=== PATIENT | male | born 1985 | race Caucasian/White ===

== ENCOUNTER 2018-11-14 15:13 | Emergency (ER) | payer MEDICAID ==
[~2018-11-14] VITALS: Ht 167.6 cm; Wt 93.2 kg
[2018-11-14 15:34] VITALS: Ht 167.6 cm; Wt 93.2 kg
[2018-11-14 18:00] VITALS: BP 138/86
== END 2018-11-14 18:00 | disposition home or self-care (01) ==
LOC: D.ER 15:13
DX: S00.03XA Contusion of scalp, initial encounter (principal); W20.8XXA Other cause of strike by thrown, projected or falling object, initial encounter; Y93.89 Activity, other specified; Y92.019 Unspecified place in single-family (private) house as the place of occurrence of the external cause; S00.01XA Abrasion of scalp, initial encounter; R11.0 Nausea; F17.200 Nicotine dependence, unspecified, uncomplicated

== ENCOUNTER → 2019-03-22 14:45 | Outpatient (CLI) | payer MEDICAID ==
[2018-11-14 15:34] VITALS: BMI 33.1
== END | disposition home or self-care (01) ==
LOC: D.RAD 14:45
PROVIDERS: ATTEND Family Medicine
DX: M25.572 Pain in left ankle and joints of left foot (principal); M25.571 Pain in right ankle and joints of right foot

== ENCOUNTER 2020-05-11 04:49 | Emergency (ER) | payer MEDICAID ==
[~2020-05-11] VITALS: Ht 167.6 cm; Wt 81.8 kg
[2020-05-11 05:03] VITALS: Ht 167.6 cm; Wt 81.8 kg
[2020-05-11 05:51] LABS: BASOPHILS 0.3 % (0-2); EOSINOPHILS 1.3 % (0-7); HEMATOCRIT 43.9 % (42.0-54.0); HEMOGLOBIN 15.5 g/dL (13.5-17.5); IMMATURE GRANULOCYTES 0.1 % (0-5); LYMPHOCYTES 26.2 % (15-50); MCH 30.8 pg (26.0-34.0); MCHC 35.3 g/dL (31.0-37.0); MCV 87.3 fL (80.0-100.0); MEAN PLATELET VOLUME 9.5 fL (7.4-10.4); NEUTROPHILS 64.1 % (40-80); PLATELET COUNT 268 10x3/uL (130-400); RBC 5.03 10x6/uL (4.20-6.10); RDW 12.2 % (11.5-14.5)
[2020-05-11 06:08] LABS: CALC OSMOLALITY 284 mosm/kg (275-300); CALCIUM 8.7 mg/dL (8.5-10.1); CARBON DIOXIDE 27.4 mmol/L (21.0-32.0); CHLORIDE - SERUM 106 mmol/L (98-107); CREATININE - SERUM 1.7 mg/dL (0.6-1.3); GLUCOSE 111 mg/dL (74-106); POTASSIUM - SERUM 3.9 mmol/L (3.5-5.1); SODIUM 142 mmol/L (136-145); UREA NITROGEN 14 mg/dL (7-18); eGFR NON AFRICAN AMERICAN 49 mL/min (90-120)
[2020-05-11 06:24] LABS: ALBUMIN 3.9 g/dL (3.4-5.0); ALKALINE PHOSPHATASE 68 U/L (30-120); ALT (SGPT) 66 U/L (10-68); BILIRUBIN - TOTAL 0.41 mg/dL (0.2-1.3); CKMB 0.1 U/L (0.0-3.6); CREATINE KINASE 77 UL (21-232); T4 THYROXIN - FREE 1.09 ng/dL (0.76-1.46); T4 THYROXINE 7.6 ug/dL (4.7-13.3)
[2020-05-11 06:30] VITALS: BP 99/63
[2020-05-11 06:30] LABS: TROPONIN-I < 0.017 ng/mL (0.000-0.060)
[2020-05-11 06:35] LABS: BILIRUBIN NEGATIVE (NEGATIVE); GLUCOSE NEGATIVE (NEGATIVE); KETONE NEGATIVE (NEGATIVE); NITRITE NEGATIVE (NEGATIVE); UROBILINOGEN NORMAL (NORMAL)
[2020-05-11 06:41] LABS: UDS - AMPHET NEGATIVE QUAL (NEGATIVE); UDS - BARB NEGATIVE QUAL (NEGATIVE); UDS - BENZO NEGATIVE QUAL (NEGATIVE); UDS - COCAINE NEGATIVE QUAL (NEGATIVE); UDS - OPIATE NEGATIVE QUAL (NEGATIVE); UDS - PCP NEGATIVE QUAL (NEGATIVE); UDS - THC POSITIVE QUAL (NEGATIVE)
== END 2020-05-11 06:49 | disposition home or self-care (01) ==
LOC: D.ER 04:49
PROVIDERS: Emergency Medicine
DX: I47.1 Supraventricular tachycardia (principal); N28.9 Disorder of kidney and ureter, unspecified; R20.0 Anesthesia of skin

== ENCOUNTER 2020-12-27 11:13 | Emergency (ER) | payer BC ==
[~2020-12-27] VITALS: Ht 167.6 cm; Wt 86.4 kg
[2020-12-27 11:17] VITALS: BP 141/88; Ht 167.6 cm; Wt 86.4 kg
[2020-12-27 11:49] LABS: BASOPHILS 0.6 % (0-2); EOSINOPHILS 2.1 % (0-7); HEMATOCRIT 44.1 % (42.0-54.0); HEMOGLOBIN 15.1 g/dL (13.5-17.5); IMMATURE GRANULOCYTES 0.1 % (0-5); LYMPHOCYTE ABS# 2.94 10x3/uL (1.32-3.57); LYMPHOCYTES 41.4 % (15-50); MCH 30.7 pg (26.0-34.0); MCHC 34.2 g/dL (31.0-37.0); MCV 89.6 fL (80.0-100.0); MEAN PLATELET VOLUME 9.8 fL (7.4-10.4); MONOCYTES 6.9 % (2-11); NEUTROPHIL ABS# 3.47 10x3/uL (1.78-5.38); NEUTROPHILS 48.9 % (40-80); PLATELET COUNT 255 10x3/uL (130-400); RBC 4.92 10x6/uL (4.20-6.10); RDW 12.5 % (11.5-14.5); WBC 7.1 10x3/uL (4.8-10.8)
[2020-12-27 11:58] LABS: ANION GAP 13.1 mmol/L (8-16); CALCIUM 8.7 mg/dL (8.5-10.1); CREATININE - SERUM 1.2 mg/dL (0.6-1.3); POTASSIUM - SERUM 4.1 mmol/L (3.5-5.1)
[2020-12-27 12:04] LABS: ALBUMIN 3.6 g/dL (3.4-5.0); BILIRUBIN - TOTAL 0.27 mg/dL (0.2-1.3); PROTEIN - SERUM 6.6 g/dL (6.4-8.2)
[2020-12-27] MEDS ORDERED: MEDROL DOSE PACK4 MG PO (12:11)
[2020-12-27] MEDS ORDERED: FLUTICASONE PRO16 GM NASAL (12:11)
[2020-12-27] MEDS ORDERED: ZYRTEC10 MG PO (12:11)
== END 2020-12-27 12:20 | disposition home or self-care (01) ==
LOC: D.ER 11:13
PROVIDERS: Emergency Medicine
DX: J30.9 Allergic rhinitis, unspecified (principal); Z72.0 Tobacco use; R51.9 Headache, unspecified; R06.02 Shortness of breath

== ENCOUNTER 2021-03-21 19:03 | Emergency (ER) | payer BC ==
[~2021-03-21] VITALS: Ht 167.6 cm; Wt 98.2 kg
[~2021-03-21 19:03] MED LIST: FLUTICASONE PRO16 GM NASAL; MEDROL DOSE PACK4 MG PO; ZYRTEC10 MG PO
[2021-03-21 19:19] VITALS: BP 114/80; Ht 167.6 cm; Wt 98.2 kg
[2021-03-21 20:52] LABS: BASOPHILS 0.3 % (0-2); EOSINOPHILS 1.5 % (0-7); HEMATOCRIT 46.4 % (42.0-54.0); HEMOGLOBIN 16.3 g/dL (13.5-17.5); MCV 88.5 fL (80.0-100.0); MONOCYTES 5.2 % (2-11); PLATELET COUNT 289 10x3/uL (130-400); RBC 5.24 10x6/uL (4.20-6.10); RDW 13.4 % (11.5-14.5); WBC 10.7 10x3/uL (4.8-10.8)
[2021-03-21 20:59] LABS: BACTERIA FEW HPF (<MOD); BILIRUBIN NEGATIVE (NEGATIVE); KETONE NEGATIVE mg/dL (< 1+); NITRITE NEGATIVE (NEGATIVE); PH 5.5 (5.0-8.0); UROBILINOGEN NORMAL mg/dL (< 2); WHITE CELLS - URINE 1 HPF (0-1)
[2021-03-21 21:03] LABS: CALCIUM 8.7 mg/dL (8.5-10.1); CARBON DIOXIDE 25.8 mmol/L (21.0-32.0); CREATININE - SERUM 1.3 mg/dL (0.6-1.3); POTASSIUM - SERUM 3.8 mmol/L (3.5-5.1)
[2021-03-21 21:10] LABS: ALBUMIN 4.2 g/dL (3.4-5.0); BILIRUBIN - TOTAL 0.37 mg/dL (0.2-1.3); PROTEIN - SERUM 7.3 g/dL (6.4-8.2)
== END 2021-03-21 22:29 | disposition left against medical advice (07) ==
LOC: D.ER 19:03
PROVIDERS: Family Medicine
DX: R10.9 Unspecified abdominal pain (principal)